=== PATIENT | female | born 1930 | race Caucasian/White ===

== ENCOUNTER 2016-10-23 07:09 | Emergency (ER) | payer OTHER ==
[2016-10-23 07:20] VITALS: BP 118/94; BMI 35.2
--- NOTE | 2016-10-23 07:35 | DR.LACERAT ---
HPI - Time Seen Time seen: 07:30 - Primary Care Physician Primary Care Physician: MISAEL - HPI Comment HPI Comment: HISTORY BELOW. - Complaints Chief Complaint Doctors Comments: FALL, SCALP LACERATION, LT RIB PAIN. HAPPEN THIS AM. PATIENT LOST HER BALANCE. Chief Complaint:: "I GOT UP AND LOST MY BALANCE, FELL AND HIT BEDSIDE TABLE.". NOTE LAC TO LEFT SCALP MEASURING 3 INCHES. PT C/O LEFT RIB AREA PAIN RATES 3- 10. - Reviewed Nurses Notes Reviewed: Yes - Source History Provided: Patient, EMS - Mode of Arrival Mode of Arrival: EMS - Location Left Head Wound's Depth, Shape: Linear Laceration Explored: Clean - Timing Onset of Chief Complaint: 10/23/16 - Context Mechanism: Fall Tetanus Vaccination: No - Severity Pain Severity: Moderate Bleeding:: Controlled - Associated Signs and Symptoms Associated Signs and Symptoms: None PMH - PMH Past Medical History: Yes Past Medical History: Arthritis, CHF, Diabetes, Dyslipidemia, Hypertension, Hypothyroidism Past Surgical History: Yes Surgical History: Hysterectomy, Ortho Surgery, Tonsillectomy Past Surgical History Comment: BILATERAL KNEE REPLACEMENT. CATARACT SURGERY BOTH EYES. LUMP IN LEFT BREAST. RT HAND CARPEL TUNNEL. BLADDER TACT - Family History History of Family Medical Conditions: Yes Family Medical History: Heart Failure - Social History Does patient currently use any type of tobacco product: No Have you used tobacco products in the last 12 months: No Type of Tobacco Use: None Does any household member use tobacco: No Alcohol Use: None Do you use any recreational Drugs:: No Lives With: Alone Lives Where: Home - infectious screening In the last 2 months have you had wt loss of >10#?: NO Have you had fever, night sweats or hemotysis?: No Have you traveled outside the country in the last 6 months?: No Isolation: Standard ROS - Review of Systems Constitutional: No Symptoms Reported Eyes: No Symptoms Reported ENTM: No Symptoms Reported Respiratoy: No Symptoms Reported Cardiovascular: No Symptoms Reported Gastrointestinal/Abdominal: No Symptoms Reported Genitourinary: No Symptoms Reported Neurological: Headache. negative: Dizziness Musculoskeletal: Muscle Pain, Left, Rib(s), Other (LT SCALP LAC) Integumentary: Other (LACERATION LT SCALP, 2CM) Hematologic/Lymphatic: No Symptoms Reported Endocrine: No Symptoms Reported All Other Systems: Reviewed and Negative PE - Vital Signs Vitals: Temperature 97.9 F Pulse Rate 73 Respiratory Rate 20 Blood Pressure [] 132/69 Blood Pressure [] 159/83 Blood Pressure 118/94 O2 Sat by Pulse Oximetry 95 - General Limitations: No Limitations General Appearance: Alert - Head Head Exam: Normal Inspection - Eyes Eye exam: Normal Appearance - ENT ENT Exam: Normal External Ear Exam - Neck Neck Exam: Normal Inspection, Trachea Midline - Chest Chest Inspection: Symmetric Chest Wall Rise - Respiratory Respiratory Exam: Normal Lung Sounds Bilat, Chest Wall Tenderness Respiratory Exam: Bilateral Clear to Auscultation - Cardiovascular Cardiovascular Exam: Regular Rate, Normal Rhythm, Normal Heart Sounds - Abdominal Exam Abdominal Exam: Normal Inspection - Extremities Extremities Exam: Tenderness (LEFT UPPER RIB.) - Back Back Exam: Normal Inspection - Neurologic Neurological Exam: Alert, Oriented X3 - Psychiatric Psychiatric Exam: Normal Affect, Normal Mood - Skin Type of Lesion: Laceration ( LACERATION LT SCALP, 2 CM.) Distribution: Chest MDM - Additional Information Obtained Additional Information Obtained From: Family - Differential Diagnosis Differential Diagnosis: Abrasion, Contusion, Laceration, Fracture Course - Treatment Treatment: SEE ORDERS - Education/Counseling Education/Counseling: Patient, Family, Education Educated On: Treatment, Diagnosis, Needs for Follow Up ROR - XRAY XRAY Interpreted by: Radiologist XRAY Findings: report discuss with patient. Procedures - Laceration/Wound Repair Left Head Wound Length (cm): 2 Wound's Depth, Shape: Linear Wound Explored: clean Betadine Prep?: Yes Anesthesia: 1% Lidocaine Volume Anesthetic (ccs): 2 Suture Size/Type: 4:0, Ethilion Layer Closure?: No Sterile Dressing Applied?: No Splint Applied?: No Sling Applied?: No - Diagnosis Discharge Problem: Rib contusion Qualifiers: Encounter type: initial encounter Laterality: left Qualified Code(s): S20.212A - Contusion of left front wall of thorax, initial encounter Scalp laceration Qualifiers: Encounter type: initial encounter Qualified Code(s): S01.01XA - Laceration without foreign body of scalp, initial encounter Scalp contusion Qualifiers: Encounter type: initial encounter Qualified Code(s): S00.03XA - Contusion of scalp, initial encounter - Discharge Plan Condition: Stable - Follow ups/Referrals Follow ups/Referrals: FELIBERTO DOUGLAS [Primary Care Provider] - 3 days - Instructions Instructions: Laceration Care, Adult, [id number], Rib Contusion, Facial or Scalp Contusion, [id number] Additional Instructions: suture out in 10 days return to ed if worse
[2016-10-23] MEDS ORDERED: ADACEL TDaP IM ONE ×2 (07:37→08:18)
--- NOTE | 2016-10-23 08:11 | RAD ---
Pelvis, one-view Indication: Fall this morning without reported hip pain Comparison: None Findings: Both iliac crests are partially excluded from the exam. No acute fracture or subluxation i s identified. There are mild degenerative changes of the bilateral hips and SI joints and moderate d egenerative changes of the pubic symphysis. Hernia mesh repair anchors are noted. Soft tissues are o therwise unremarkable. Impression: No acute osseous abnormality. Reported By:
--- NOTE | 2016-10-23 08:12 | CT ---
HISTORY: Head injury, fall, head laceration Study: CT brain without contrast Comparison: None Technique: Multiple axial images of the brain were obtained from the skull base to the vertex without administr ation of IV contrast. Coronal and sagittal reformats were performed. Dose reduction procedures were used with MA/kv adjusted for body size. Findings: No acute intraparenchymal hemorrhage or mass can be identified. No extra-axial fluid collections ar e seen. No alteration in the attenuation of the brain parenchyma can be identified to suggest acute or subacute ischemic change. the ventricles, cortical sulci, and other CSF spaces are enlarged con sistent with generalized atrophy likely age related. The extracranial structures are grossly unrema rkable. the calvarium is intact. IMPRESSION: 1. No acute intracranial process can be identified. 2. Age-related generalized atrophy Reported By:
--- NOTE | 2016-10-23 08:15 | RAD ---
HISTORY: Fall with left-sided rib pain Study: Left ribs series, three AP views Comparison: None Findings: The cardiac silhouette is mildly enlarged without evidence of congestive failure. The lungs are hypo expanded but clear. No focal consolidation or significant effusion is identified. The osseous thorax is unremarkable. Evaluation of the ribs is limited due to patient body habitus and no oblique views. Given these limi tations, no acute cortical disruption or angulation of the bony left or right hemithorax can be iden tified. No underlying pneumothorax is seen. IMPRESSION: 1. No acute cardiopulmonary disease. 2. No displaced rib fracture identified. Reported By:
[2016-10-23] MEDS ORDERED: XYLOCAINE 1 % (PLAIN) ONE (08:19)
== END 2016-10-23 09:02 | disposition home or self-care (01) ==
LOC: ER 07:09
PROC: 0WQ00ZZ Repair Head, Open Approach (ICD-10-PCS; principal; 2016-10-23)
DX: S20.212A Contusion of left front wall of thorax, initial encounter (principal); S01.01XA Laceration without foreign body of scalp, initial encounter; S00.03XA Contusion of scalp, initial encounter; W01.198A Fall on same level from slipping, tripping and stumbling with subsequent striking against other object, initial encounter; Y92.9 Unspecified place or not applicable
CPT/HCPCS: 12001; 70450; 71111; 72170; 90471; 96372; 99283; J2001

== ENCOUNTER → 2017-02-02 | Outpatient (CLI) | payer OTHER | LOC: LAB 02-01 14:05 | PROVIDERS: ATTEND Internal Medicine Gastroenterology | DX: K64.0 First degree hemorrhoids (principal); R19.5 Other fecal abnormalities | CPT/HCPCS: 82270 ==

== ENCOUNTER → 2017-02-19 | Outpatient (CLI) | payer OTHER ==
[2017-02-19 10:12] LABS: BASOPHILS # (AUTO) 0.1 X10^3/uL (0.0-0.1); BASOPHILS % (AUTO) 0.8 % (0.2-1.0); EOSINOPHILS # (AUTO) 0.3 x10^3/uL (0.0-0.2); EOSINOPHILS % (AUTO) 2.7 % (0.9-2.9); HEMATOCRIT 41.8 % (36.0-47.0); HEMOGLOBIN 13.8 g/dL (12.0-16.0); LYMPHOCYTES # (AUTO) 3.1 X10^3/uL (1.3-2.9); LYMPHOCYTES % (AUTO) 27.5 % (21.0-51.0); MEAN CORPUSCULAR HEMOGLOBIN 27.9 pg (27.0-34.0); MEAN CORPUSCULAR VOLUME 84.4 fL (80.0-100.0); MEAN PLATELET VOLUME 10.3 fL (7.4-11.0); MONOCYTES # (AUTO) 1.1 x10^3/uL (0.3-0.8); MONOCYTES % (AUTO) 9.5 % (0.0-13.0); NEUTROPHILS # (AUTO) 6.7 x10^3/uL (2.2-4.8); NEUTROPHILS % (AUTO) 59.5 % (42.0-75.0); PLATELET COUNT 254 X10^3/uL (150.0-450.0); RED BLOOD COUNT 4.96 X10^6/uL (3.5-5.4); RED CELL DISTRIBUTION WIDTH 14.8 % (11.6-16.5); WHITE BLOOD COUNT 11.3 X10^3/uL (3.6-10.0)
== END ==
LOC: LAB 09:33
PROVIDERS: ATTEND Internal Medicine Gastroenterology
DX: R19.5 Other fecal abnormalities (principal)
CPT/HCPCS: 36415; 85025

== ENCOUNTER → 2017-02-20 | Outpatient (CLI) | payer OTHER | LOC: LAB 07:27 | PROVIDERS: ATTEND Internal Medicine Gastroenterology | DX: R19.5 Other fecal abnormalities (principal) | CPT/HCPCS: 82270 ==

== ENCOUNTER 2017-11-09 07:26 | Observation (INO) ==
--- NOTE | 2017-11-09 08:01 | DR.CONMALE ---
HPI Time Seen Time seen: 07:55 Complaint Chief Complaint Doctors Comments: Daughter reports that patient has not had a bowel movement in about one month. She has tried various medications but have not been successful. Timing Onset of Chief Complaint: 10/15/17 PMH PMH Past Medical History: Yes Past Medical History: Arthritis, CHF, Diabetes, Dyslipidemia, Hypertension and Hypothyroidism Past Surgical History: Yes Surgical History: Hysterectomy, Ortho Surgery and Tonsillectomy Family History History of Family Medical Conditions: Yes Family Medical History: Heart Failure Social History Does patient currently use any type of tobacco product: No Have you used tobacco products in the last 12 months: No Type of Tobacco Use: None Does any household member use tobacco: No Alcohol Use: None Do you use any recreational Drugs:: No Lives With: Alone Lives Where: Home infectious screening In the last 2 months have you had wt loss of >10#?: NO Have you had fever, night sweats or hemotysis?: No Have you traveled outside the country in the last 6 months?: No Isolation: Standard PE Vital Signs Vital Signs: Temp Pulse Pulse Resp BP BP BP 11/09/17 09:09 60 18 171/103 11/09/17 07:27 98.1 F 62 17 139/66 10/23/16 07:10 118/94 12/12/13 12:00 132/69 12/11/13 18:42 159/83 Pulse Ox 11/09/17 09:09 97 11/09/17 07:27 97 10/23/16 07:10 12/12/13 12:00 12/11/13 18:42 General General Appearance: Alert, In No Apparent Distress, Anxious and In Distress Head Head Exam: Normal Inspection and Atraumatic Eyes Eye exam: Normal Appearance, PERRL and EOMI ENT ENT Exam: Normal Exam and Normal Oropharynx Neck Neck Exam: Normal Inspection Chest Chest Inspection: Normal Inspection and Symmetric Chest Wall Rise Respiratory Respiratory Exam: Normal Lung Sounds Bilat; negative Prolonged Expiratory Phase and Respiratory Distress Respiratory Exam: Bilateral: Clear to Auscultation Cardiovascular Cardiovascular Exam: Regular Rate and Normal Rhythm Gastrointestinal Abdominal Exam: Normal Inspection, Soft and Hypoactive Bowel Sounds; negative Rebound Abdominal Tenderness: negative RUQ, RLQ, LUQ, LLQ, Epigastrium and Suprapubic Rectal Rectal: Deferred and Impaction (per x ray) Extremities Extremities Exam: Normal Inspection Back Back Exam: Normal Inspection Neurological Neurological Exam: Alert, Oriented X3, CN II-XII Intact and Normal Gait Psychiatric Psychiatric Exam: Normal Affect, Normal Mood and Anxious Skin Skin Exam: Warm, Dry and Intact COURSE Consultation Called: 08:25 Consultation Comments: Dr. Jean agreed to admit for disimpaction ROR Labs Reviewed Result Diagrams: 11/09/17 08:36 11/09/17 08:36 Laboratory: WBC 9.6 X10^3/uL (3.6-10.0) 11/09/17 08:36 RBC 4.74 X10^6/uL (3.5-5.4) 11/09/17 08:36 Hgb 13.5 g/dL (12.0-16.0) 11/09/17 08:36 Hct 40.7 % (36.0-47.0) 11/09/17 08:36 MCV 85.9 fL (80.0-100.0) 11/09/17 08:36 MCH 28.4 pg (27.0-34.0) 11/09/17 08:36 MCHC 33.1 g/dL (33.0-35.0) 11/09/17 08:36 RDW 14.6 % (11.6-16.5) 11/09/17 08:36 Plt Count 218 X10^3/uL (150.0-450.0) 11/09/17 08:36 MPV 9.9 fL (7.4-11.0) 11/09/17 08:36 Neut % (Auto) 60.4 % (42.0-75.0) 11/09/17 08:36 Lymph % (Auto) 25.2 % (21.0-51.0) 11/09/17 08:36 [place] % (Auto) 11.2 % (0.0-13.0) 11/09/17 08:36 Eos % (Auto) 2.2 % (0.9-2.9) 11/09/17 08:36 Baso % (Auto) 1.0 % (0.2-1.0) 11/09/17 08:36 Neut # (Auto) 5.8 x10^3/uL (2.2-4.8) H 11/09/17 08:36 Lymph # (Auto) 2.4 X10^3/uL (1.3-2.9) 11/09/17 08:36 [place] # (Auto) 1.1 x10^3/uL (0.3-0.8) H 11/09/17 08:36 Eos # (Auto) 0.2 x10^3/uL (0.0-0.2) 11/09/17 08:36 Baso # (Auto) 0.1 X10^3/uL (0.0-0.1) 11/09/17 08:36 Absolute Nucleated RBC 0.1 /100WBC 11/09/17 08:36 Sodium 140 mmol/L (136-145) 11/09/17 08:36 Corrected Sodium 140 mmol/L (136-145) 11/09/17 08:36 Potassium 4.7 mmol/L (3.5-5.1) 11/09/17 08:36 Chloride 104 mmol/L (98-107) 11/09/17 08:36 Carbon Dioxide 31.2 mmol/L (21-32) 11/09/17 08:36 BUN 17 mg/dL (7-18) 11/09/17 08:36 Creatinine 1.25 mg/dL (0.55-1.02) H 11/09/17 08:36 Est GFR (MDRD) Af Amer 52 (>60) L 11/09/17 08:36 Est GFR (MDRD) Non-Af 43 (>60) L 11/09/17 08:36 Glucose 111 mg/dL (65-99) H 11/09/17 08:36 Calcium 9.6 mg/dL (8.5-10.1) 11/09/17 08:36 Corrected Calcium TNP 11/09/17 08:36 Total Bilirubin 0.80 mg/dL (0.2-1.0) 11/09/17 08:36 AST 16 Units/L (15-37) 11/09/17 08:36 ALT 18 Units/L (12-78) 11/09/17 08:36 Alkaline Phosphatase 70 Units/L (46-116) 11/09/17 08:36 Total Protein 7.2 g/dL (6.4-8.2) 11/09/17 08:36 Albumin 4.0 g/dL (3.4-5.0) 11/09/17 08:36 Globulin 3.2 g/dL (2.5-4.5) 11/09/17 08:36 Albumin/Globulin Ratio 1.3 Ratio (1.1-2.1) 11/09/17 08:36 Specimen Type Clean catch urine 11/09/17 08:58 Urine Color Yellow (YELLOW) 11/09/17 08:58 Urine Appearance Clear (CLEAR) 11/09/17 08:58 Urine pH 5.0 (5.0 - 8.0) 11/09/17 08:58 Ur Specific [place] 1.015 (1.000-1.030) 11/09/17 08:58 Urine Protein Negative (NEGATIVE) 11/09/17 08:58 Urine Glucose (UA) Negative (NEGATIVE) 11/09/17 08:58 Urine Ketones Negative (NEGATIVE) 11/09/17 08:58 Urine Occult Blood Negative (NEGATIVE) 11/09/17 08:58 Urine Nitrite Negative (NEGATIVE) 11/09/17 08:58 Urine Bilirubin Negative (NEGATIVE) 11/09/17 08:58 Urine Urobilinogen Normal (NORMAL) 11/09/17 08:58 Ur Leukocyte Esterase Negative (NEGATIVE) 11/09/17 08:58 XRAY XRAY Interpreted by: Radiologist XRAY Findings: Significant stool burden consistet with constipation---fecal impaction Diagnosis Discharge Problem: Constipation
--- NOTE | 2017-11-09 08:16 | RAD ---
HISTORY: 87-year-old female with constipation and abdominal pain. Study: Two views of the abdomen. Comparison: Acute abdominal series [id number] Findings: Evaluation of the abdomen demonstrates a nonobstructive bowel gas pattern. Extensive amount stool and gas throughout the colon and rectum without radiographic evidence of free intraperitoneal air. No p athological soft tissue mass or calcification can be observed. The bony structures are grossly intac t. Surgical tacks low pelvis are unchanged. IMPRESSION: 1. Significant stool burden consistent with constipation, correlate clinically as disimpaction may be required. 2. Nonobstructive bowel gas pattern. Reported By:
[2017-11-09 08:53] LABS: BASOPHILS # (AUTO) 0.1 X10^3/uL (0.0-0.1); EOSINOPHILS # (AUTO) 0.2 x10^3/uL (0.0-0.2); EOSINOPHILS % (AUTO) 2.2 % (0.9-2.9); HEMATOCRIT 40.7 % (36.0-47.0); HEMOGLOBIN 13.5 g/dL (12.0-16.0); LYMPHOCYTES # (AUTO) 2.4 X10^3/uL (1.3-2.9); LYMPHOCYTES % (AUTO) 25.2 % (21.0-51.0); MEAN CORPUSCULAR HEMOGLOBIN 28.4 pg (27.0-34.0); MEAN CORPUSCULAR HGB CONC 33.1 g/dL (33.0-35.0); MEAN CORPUSCULAR VOLUME 85.9 fL (80.0-100.0); MEAN PLATELET VOLUME 9.9 fL (7.4-11.0); MONOCYTES # (AUTO) 1.1 x10^3/uL (0.3-0.8); MONOCYTES % (AUTO) 11.2 % (0.0-13.0); NEUTROPHILS # (AUTO) 5.8 x10^3/uL (2.2-4.8); NEUTROPHILS % (AUTO) 60.4 % (42.0-75.0); PLATELET COUNT 218 X10^3/uL (150.0-450.0); RED BLOOD COUNT 4.74 X10^6/uL (3.5-5.4); RED CELL DISTRIBUTION WIDTH 14.6 % (11.6-16.5); WHITE BLOOD COUNT 9.6 X10^3/uL (3.6-10.0)
[2017-11-09 08:57] LABS: ALANINE AMINOTRANSFERASE 18 Units/L (12-78); ALKALINE PHOSPHATASE 70 Units/L (46-116); ASPARTATE AMINO TRANSFERASE 16 Units/L (15-37); BLOOD UREA NITROGEN 17 mg/dL (7-18); CALCIUM 9.6 mg/dL (8.5-10.1); CARBON DIOXIDE 31.2 mmol/L (21-32); CHLORIDE 104 mmol/L (98-107); COR NA(FOR HYPERGLY) 140 mmol/L (136-145); CREATININE 1.25 mg/dL (0.55-1.02); SODIUM 140 mmol/L (136-145); TOTAL PROTEIN 7.2 g/dL (6.4-8.2); eGFR NON BLACK RACES 43 (>60)
[2017-11-09 09:07] LABS: BILIRUBIN,URINE NEGATIVE (NEGATIVE); BLOOD/HEMOGLOBIN,URINE NEGATIVE (NEGATIVE); GLUCOSE, URINE NEGATIVE (NEGATIVE); KETONES,URINE NEGATIVE (NEGATIVE); LEUKOCYTE ESTERASE ,URINE NEGATIVE (NEGATIVE); NITRITES,URINE NEGATIVE (NEGATIVE); PROTEIN,URINE NEGATIVE (NEGATIVE); UROBILINOGEN,URINE NORMAL (NORMAL)
[2017-11-09 09:10] LABS: APPEARANCE,URINE CLEAR (CLEAR); COLOR,URINE YELLOW (YELLOW)
[2017-11-09] MEDS ORDERED: MORPHINE SULFATE INJ 4 MG IVP PRN (09:10)
[2017-11-09] MEDS ORDERED: FLEET ENEMA ADULT PR ONE (09:19)
[2017-11-09] MEDS ORDERED: XANAX PO PRN (09:21)
[2017-11-09] MEDS ORDERED: [UNRECOGNIZED DRUG - OTHER] PO SCH (09:30)
[2017-11-09] MEDS ORDERED: CHOLECALCIFEROL PO SCH (09:30)
[2017-11-09] MEDS ORDERED: SIMVASTATIN 40 MG PO SCH (09:30)
[2017-11-09] MEDS ORDERED: ALPHAGAN 0.2% OPHTH SOLN EACHEYE SCH (10:00)
[2017-11-09] MEDS ORDERED: PHARMACY CONSULT - DOSE _____ XX SCH (10:00)
[2017-11-09] MEDS ORDERED: GLUCOPHAGE ONE (10:18)
[2017-11-09] MEDS: ASPIRIN EC 81 MG PO SCH (10:22)
[2017-11-09] MEDS: GLUCOPHAGE PO SCH (10:22)
[2017-11-09] MEDS: COLACE CAP 100 MG PO SCH ×3 (10:23→21:05)
[2017-11-09] MEDS: VITAMIN D3 PO SCH (10:23)
[2017-11-09] MEDS: MICRO K EXTEN CAP 10 MEQ PO SCH (10:24)
[2017-11-09] MEDS: SYNTHROID 125 mcg TAB PO SCH (10:24)
[2017-11-09 10:26] VITALS: BMI 32.2
[2017-11-09] MEDS ORDERED: PREVNAR 13 IM ONE (10:26)
[2017-11-09] MEDS ORDERED: NULYTELY or GO-LYTELY PO SCH (11:00)
[2017-11-09] MEDS: ZOFRAN INJ 4 MG VIAL IVP PRN ×2 (12:55→23:18)
--- NOTE | 2017-11-09 12:55 | RAD ---
HISTORY: NG tube placement Study: KUB Comparison: 11/09/2017. Findings: Nasogastric tube is present with the tip present at the level of the greater curvature of the proxima l gastric body. The side hole is seen just caudal to the EG junction. The tube would likely be more e ffective if advanced about 8-10 cm. There is abundance of stool present throughout the colon. The sto ol burden does appear to be improving. Slight increase in small bowel gas is present in a nonspecific pattern. Findings may indicate a very mild small bowel ileus. No bowel obstruction is seen. There is no evidence of opaque stone. Multilevel lumbar spondylosis is present. Degenerative changes are pres ent involving both hips. IMPRESSION: NG tube as described above. The tube would likely be more effective if advanced about 8-10 cm. Nonobstructive bowel gas pattern. Reported By:
[2017-11-09] MEDS ORDERED: ZESTRIL TAB 20 MG ONE (19:31)
[2017-11-09] MEDS ORDERED: ZOCOR TAB 40 MG PO SCH (21:00)
[2017-11-09] MEDS ORDERED: RESTORIL CAP 30 MG PO SCH (21:00)
[2017-11-09] MEDS ORDERED: ZESTRIL TAB 20 MG PO SCH (21:00)
[2017-11-10] MEDS ORDERED: COLACE SYRUP 100 MG UDC NG SCH (02:00)
[2017-11-10] MEDS: ZOFRAN INJ 4 MG VIAL IVP PRN (06:51)
--- NOTE | 2017-11-10 07:05 | RAD ---
HISTORY: Constipation Study: Flat and upright abdomen, PA chest Comparison: 11/09/2017 Findings: The abdominal gas pattern is nonspecific and nonobstructive. No pneumoperitoneum is identified. A lar ge amount of stool is not identified. Right upper quadrant calcifications are identified possibly rep resenting cholelithiasis. Sonographic correlation is recommended. The heart is mildly enlarged. The a jitendra is calcified. The rajinder are normal. The lung you are clear. IMPRESSION: No acute abdominal abnormality. A large amount of stool is not identified Right upper quadrant calcifications possibly cholelithiasis. This could be confirmed or excluded sono graphically Lungs clear Reported By:
[2017-11-10 08:03] VITALS: BP 188/88
[2017-11-10] MEDS ORDERED: GLUCOPHAGE ONE (09:38)
[2017-11-10] MEDS: VITAMIN D3 PO SCH (09:41)
[2017-11-10] MEDS: GLUCOPHAGE PO SCH (09:41)
[2017-11-10] MEDS: ASPIRIN EC 81 MG PO SCH (09:41)
[2017-11-10] MEDS: MICRO K EXTEN CAP 10 MEQ PO SCH (09:43)
[2017-11-10] MEDS: SYNTHROID 125 mcg TAB PO SCH (09:43)
[2017-11-10] MEDS ORDERED: PREVNAR 13 IM ONE (10:00)
== END 2017-11-10 12:15 | disposition home or self-care (01) ==
LOC: ER 07:26 → MED/SURG 07:26
PROVIDERS: ADMIT Obstetrics & Gynecology Obstetrics; ATTEND Obstetrics & Gynecology Obstetrics
DX: R94.4 Abnormal results of kidney function studies; K56.41 Fecal impaction; E78.2 Mixed hyperlipidemia; Z79.899 Other long term (current) drug therapy; J30.89 Other allergic rhinitis; E03.8 Other specified hypothyroidism; Z66 Do not resuscitate; E11.65 Type 2 diabetes mellitus with hyperglycemia; I10 Essential (primary) hypertension
CPT/HCPCS: 36415; 74000; 74018; 74022; 80053; 81003; 85025; 96365; 99283; 99284; A4222; G0378; J2405